=== PATIENT | female | born 1985 | race American Indian/Alaskan Native ===

== ENCOUNTER 2017-09-27 09:24 | Day surgery (SDC) | payer OTHER ==
[2017-09-26 14:40] VITALS: BMI 20.7
--- NOTE | 2017-09-27 11:22 | PROC ---
Endoscopy Procedure Endoscopy procedure completed. Please see scanned procedure report.
[2017-09-27 11:36] VITALS: TEMP 97.8
[2017-09-27 12:58] VITALS: BP 119/80; PULSE 61
--- NOTE | 2017-09-28 10:53 | PATH ---
Surgical Pathology Report Patient Name: [facility]. Rec. #: [id number] /Age/Gender: 1985 (Age: 32) / F Account: [id number] Location: [facility]-ENDOSCOPY Taken: 09/27/2017 Received: 09/27/2017 Reported: 09/28/2017 Physicians: Juwan Delaney M.D. Specimen(s) Received A: BX 2ND PORTION DUODENUM B: BX ANTRUM AND BODY Clinical History Gastritis, rule out H. Pylori, IBS Postoperative diagnosis: Gastritis, rule out H. Pylori, IBS Final Diagnosis A. DUODENUM, SECOND PORTION, BIOPSY: DUODENAL MUCOSA WITHOUT SIGNIFICANT PATHOLOGIC FINDINGS. B. STOMACH, ANTRUM AND BODY, BIOPSY: GASTRIC ANTRAL AND BODY MUCOSA WITH MODERATE CHRONIC ACTIVE GASTRITIS. IMMUNOHISTOCHEMICAL STAIN FOR H. PYLORI IS POSITIVE (MANY). Electronically Signed Leandra Lopez M.D. Gross Description A. Received in formalin, labeled "second portion of duodenum" are 2 cadena, irregular portions of soft tissue averaging 0.3 cm. in greatest dimension. The specimens are submitted in toto in one cassette. B. Received in formalin, labeled "antrum and body" are 4 cadena, irregular portions of soft tissue ranging from 0.1-0.3 cm. in greatest dimension. The specimens are submitted in toto in one cassette. 09/27/2017 saudi09/27/2017
== END 2017-09-27 12:58 | disposition home or self-care (01) ==
LOC: JASU-ENDO 09:24
PROVIDERS: ATTEND Internal Medicine Gastroenterology
PROC: 0DB68ZX Excision of Stomach, Via Natural or Artificial Opening Endoscopic, Diagnostic (ICD-10-PCS; 2017-09-27)
PROC: 0DB98ZX Excision of Duodenum, Via Natural or Artificial Opening Endoscopic, Diagnostic (ICD-10-PCS; principal; 2017-09-27 10:30)
DX: R10.13 Epigastric pain (principal)
CPT/HCPCS: 84703; 88305-TC; 88342-TC